=== PATIENT | female | born 1940 | race Caucasian/White ===

== ENCOUNTER 2024-12-26 15:17 | Emergency (ER) | payer MEDICARE, BC ==
[2024-12-26 15:36] LABS: BASOPHILS PERCENT AUTO 0.5 % (0.2-1.2); EOSINOPHILS ABSOLUTE AUTO 0.1 x10^3/uL (0.0-0.5); EOSINOPHILS PERCENT AUTO 1.4 % (0.0-4.0); HEMATOCRIT 45.1 % (33.0-47.0); HEMOGLOBIN 15.5 g/dL (12.0-16.0); IMMATURE GRAN ABSOLUTE AUTO 0.01 x10^3/uL (0.00-0.07); LYMPHOCYTES ABSOLUTE AUTO 2.2 x10^3/uL (1.0-4.8); LYMPHOCYTES PERCENT AUTO 38.9 % (25.0-50.0); MEAN CORPUSCULAR HEMOGLOBIN 30.5 pg (26.0-32.0); MEAN CORPUSCULAR HGB CONC 34.4 g/dL (32.0-36.0); MEAN CORPUSCULAR VOLUME 88.8 fL (78.0-93.0); MONOCYTES ABSOLUTE AUTO 0.5 x10^3/uL (0.0-0.8); MONOCYTES PERCENT AUTO 9.5 % (2.0-11.0); NEUTROPHILS ABSOLUTE AUTO 2.8 x10^3/uL (1.8-7.7); NEUTROPHILS PERCENT AUTO 49.5 % (50.0-80.0); PLATELET COUNT,PLT 186 x10^3/uL (130-400); RED BLOOD CELL COUNT 5.08 x10^6/uL (4.00-5.50); WHITE BLOOD CELL COUNT,WBC 5.7 x10^3/uL (4.0-10.0)
[2024-12-26 15:55] LABS: A/G RATIO 1.13; ALANINE AMINOTRANSFERASE,ALT 47 U/L (14-59); ALBUMIN 3.5 g/dL (3.4-5.0); ALKALINE PHOSPHATASE 94 U/L (46-116); ASPARTATE AMNIOTRANSFERASE,AST 31 U/L (15-37); BILIRUBIN TOTAL 0.5 mg/dL (0.2-1.0); BLOOD UREA NITROGEN,BUN 11 mg/dL (7-18); CALCIUM 9.4 mg/dL (8.5-10.1); CARBON DIOXIDE,CO2 31 mmol/L (21-32); CHLORIDE,CL 102 mmol/L (98-107); CREATINE KINASE,CK 138 U/L (26-192); CREATININE 0.9 mg/dL (0.55-1.02); GLUCOSE RANDOM 111 mg/dL (70-99); POTASSIUM,K 3.6 mmol/L (3.5-5.1); PROTEIN TOTAL,TP 6.6 g/dL (6.4-8.2); SODIUM,NA 141 mmol/L (136-145)
[2024-12-26 15:59] LABS: ANION GAP 11.6 mmol/L (5-15); ESTIMATED GFR 63 mL/min (>=60)
== END 2024-12-26 16:48 | disposition home or self-care (01) ==
LOC: VM.ED 15:17
DX: K52.9 Noninfective gastroenteritis and colitis, unspecified (principal); R00.0 Tachycardia, unspecified; Z88.5 Allergy status to narcotic agent
CPT/HCPCS: 36415; 80053; 82550; 84484; 85025; 93005; 93010; 99284; 99285